=== PATIENT | male | born 1985 | race American Indian/Alaskan Native ===

== ENCOUNTER 2018-10-02 00:06 | Emergency (ER) | payer OTHER ==
[2018-10-02 00:45] VITALS: BP 159/104
--- NOTE | 2018-10-02 01:45 | XRay Report ---
PROCEDURE: XR TIBIA FIBULA 2V RT TECHNIQUE: Right tibia and fibula radiographs, AP and lateral views. HISTORY: significant L leg swelling s/p trauma COMPARISONS: None. FINDINGS: Fracture (s) and/or Dislocation(s): None. Joint space(s): Normal. Soft tissues: Normal. Bone mineralization: Normal. Foreign bodies: None. IMPRESSION: Normal Examination. This document is electronically signed by Latrell Edwards MD., October 02 2018 01:43:53 AM ET
== END 2018-10-02 03:00 | disposition left against medical advice (07) ==
LOC: ED 00:06
DX: M79.661 Pain in right lower leg (principal); Z53.21 Procedure and treatment not carried out due to patient leaving prior to being seen by health care provider

== ENCOUNTER 2019-10-09 08:09 | Emergency (ER) | payer OTHER ==
[2019-10-09 08:13] VITALS: BP 175/104
== END 2019-10-09 08:30 | disposition left against medical advice (07) ==
LOC: ED 08:09
DX: I10 Essential (primary) hypertension (principal); Z53.21 Procedure and treatment not carried out due to patient leaving prior to being seen by health care provider
CPT/HCPCS: 93005; 93010

== ENCOUNTER 2021-11-21 14:35 | Inpatient (IN) | payer SELFPAY ==
[2021-11-21] MEDS ORDERED: MORPHINE 4 MG/1 ML INJ IV ONE (15:48)
[2021-11-21] MEDS ORDERED: ONDANSETRON 4 MG/2 ML INJ IV ONE (15:48)
[2021-11-21 16:48] LABS: Alanine Aminotransferase 39 units/L (7-56); Albumin 4.6 g/dL (3.9-5); BUN/Creatinine Ratio 4; Blood Urea Nitrogen 6 mg/dL (9-20); Calcium 9.5 mg/dL (8.4-10.2); Hemolysis Index 37
[2021-11-21 16:53] LABS: Basophils % (Auto) 0.2 % (0.0-1.8); Eosinophils % (Auto) 0.1 % (0.0-4.3); Hematocrit 47.1 % (35.5-45.6); Hemoglobin 16.6 gm/dl (11.8-15.2); Lymphocytes # (Auto) 1.5 K/mm3 (1.2-5.4); Lymphocytes % (Auto) 10.2 % (13.4-35.0); Mean Corpuscular HGB Conc 35 % (32-34); Mean Corpuscular Volume 96 fl (84-94); Monocytes # (Auto) 1.2 K/mm3 (0.0-0.8); Platelet Count 310 K/mm3 (140-440); Red Blood Count 4.91 M/mm3 (3.65-5.03); Red Cell Distribution Width 13.4 % (13.2-15.2)
[2021-11-21] MEDS ORDERED: SODIUM CHLORIDE 0.9% 1000 ML 1,000 ML IV ONE (17:27)
[2021-11-21] MEDS ORDERED: HYDROmorphone 1 MG/1 ML INJ IV ONE (18:46)
--- NOTE | 2021-11-21 18:46 | Emergency Department Report ---
ED General Adult HPI - General Chief complaint: Weakness Stated complaint: VOMITING/LIGHT HEADED Time Seen by Provider: 11/21/21 15:14 Source: patient Mode of arrival: Ambulatory Limitations: No Limitations - History of Present Illness Initial comments: Patient presents with complaints of middle, upper abdominal pain, sharp, radiating, 10/10, not worsened or relieved by anything. Endorses nausea, non bloody, non bilious vomiting. Last BM was today and formed. Endorses flatulence. Denies dysuria, frequency, urgency. Severity scale (0 -10): 8 - Related Data Home Medications Medication Instructions Recorded Confirmed Last Taken Gabapentin [Neurontin] 600 mg PO TID 11/21/21 11/21/21 Unknown Ipratropium (Nf) [Atrovent HFA 2 sprays PO Q4HR 11/21/21 11/21/21 Unknown 17MCG/PUFF] Losartan [Cozaar] 25 mg PO DAILY 11/21/21 11/21/21 Unknown amLODIPine [Norvasc] 10 mg PO DAILY 11/21/21 11/21/21 Unknown hydroCHLOROthiazide [HCTZ] 25 mg PO QDAY 11/21/21 11/21/21 Unknown Allergies Allergy/AdvReac Type Severity Reaction Status Date / Time No Known Allergies Allergy Unverified 10/02/18 00:16 ED Review of Systems ROS: Stated complaint: VOMITING/LIGHT HEADED Other details as noted in HPI Comment: All other systems reviewed and negative Constitutional: denies: chills, fever ED Past Medical Hx - Past Medical History Hx Hypertension: Yes Hx Asthma: Yes - Surgical History Past Surgical History?: Yes Additional Surgical History: small bowel obstruction 02/2021 - Social History Smoking Status: Current Some Day Smoker Substance Use Type: None, Alcohol - Medications Home Medications: Home Medications Medication Instructions Recorded Confirmed Last Taken Type Gabapentin [Neurontin] 600 mg PO TID 11/21/21 11/21/21 Unknown History Ipratropium (Nf) [Atrovent HFA 2 sprays PO Q4HR 11/21/21 11/21/21 Unknown History 17MCG/PUFF] Losartan [Cozaar] 25 mg PO DAILY 11/21/21 11/21/21 Unknown History amLODIPine [Norvasc] 10 mg PO DAILY 11/21/21 11/21/21 Unknown History hydroCHLOROthiazide [HCTZ] 25 mg PO QDAY 11/21/21 11/21/21 Unknown History ED Physical Exam - General Limitations: No Limitations General appearance: alert, other (writhing in pain) - Head Head exam: Present: atraumatic, normocephalic - Eye Eye exam: Present: PERRL, EOMI - ENT ENT exam: Present: mucous membranes moist, other (airway patent) - Neck Neck exam: Present: other (supple; no JVD) - Respiratory Respiratory exam: Present: other (good air entry, nml I:E, CTAB, no use of MARIA ELENA) - Cardiovascular Cardiovascular Exam: Present: regular rate. Absent: rubs, gallop - GI/Abdominal GI/Abdominal exam: Present: other (soft; tender to palpation in epigastric rewgion; no rebound tenderness or involuntary guarding ) - Extremities Exam Extremities exam: Present: full ROM. Absent: tenderness - Back Exam Back exam: Present: full ROM. Absent: CVA tenderness (R), CVA tenderness (L) - Neurological Exam Neurological exam: Present: alert, oriented X3, CN II-XII intact. Absent: motor sensory deficit - Skin Skin exam: Present: warm, normal color ED Course Vital Signs 11/21/21 11/21/21 11/21/21 14:49 15:16 16:01 Temperature 96.2 F L Pulse Rate 144 H 104 H Respiratory 22 22 Rate Blood Pressure 83/46 Blood Pressure 94/54 [Right] O2 Sat by Pulse 100 98 100 Oximetry 11/21/21 11/21/21 11/21/21 16:02 16:58 18:00 Temperature Pulse Rate 84 104 H Respiratory 18 18 18 Rate Blood Pressure Blood Pressure 126/66 105/60 [Right] O2 Sat by Pulse 99 96 Oximetry 11/21/21 11/21/21 11/21/21 18:52 18:56 19:06 Temperature 97.9 F 98.1 F Pulse Rate 105 H 105 H Respiratory 17 17 19 Rate Blood Pressure Blood Pressure 126/68 126/68 [Right] O2 Sat by Pulse 100 100 Oximetry 11/21/21 11/21/21 11/21/21 20:48 21:01 21:15 Temperature 99.0 F Pulse Rate 108 H 102 H Respiratory 14 21 Rate Blood Pressure 112/65 Blood Pressure [Right] O2 Sat by Pulse 100 91 Oximetry ED Medical Decision Making - Lab Data Result diagrams: 11/21/21 16:10 11/21/21 16:10 Laboratory Results - last 72 hr 11/21/21 11/21/21 11/21/21 16:10 16:10 16:10 WBC 14.8 H RBC 4.91 Hgb 16.6 H Hct 47.1 H MCV 96 H MCH 34 H MCHC 35 H RDW 13.4 Plt Count 310 Lymph % (Auto) 10.2 L [place] % (Auto) 8.0 H Eos % (Auto) 0.1 Baso % (Auto) 0.2 Lymph # (Auto) 1.5 [place] # (Auto) 1.2 H Eos # (Auto) 0.0 Baso # (Auto) 0.0 Seg Neutrophils % 81.5 H Seg Neutrophils # 12.1 H Sodium 126 L Potassium 3.1 L Chloride 83.6 L Carbon Dioxide 19 L Anion Gap 27 BUN 6 L Creatinine 1.5 H Estimated GFR > 60 BUN/Creatinine Ratio 4 Glucose 144 H Lactic Acid 5.80 H* Calcium 9.5 Total Bilirubin 1.30 H AST 77 H ALT 39 Alkaline Phosphatase 159 H Total Protein 7.7 Albumin 4.6 Albumin/Globulin Ratio 1.5 Lipase 703 H 11/21/21 17:36 WBC RBC Hgb Hct MCV MCH MCHC RDW Plt Count Lymph % (Auto) [place] % (Auto) Eos % (Auto) Baso % (Auto) Lymph # (Auto) [place] # (Auto) Eos # (Auto) Baso # (Auto) Seg Neutrophils % Seg Neutrophils # Sodium Potassium Chloride Carbon Dioxide Anion Gap BUN Creatinine Estimated GFR BUN/Creatinine Ratio Glucose Lactic Acid 0.90 Calcium Total Bilirubin AST ALT Alkaline Phosphatase Total Protein Albumin Albumin/Globulin Ratio Lipase CT abd/pelvis: acute pancreatitis - Medical Decision Making Received morphine 4 mg IV x 1, zofran 4 mg IV x 1, dilaudid 1 mg IV x 1, NS @ 125 ml/hr Dr. Hobbs (hospitalist) called @ 18:00 for admission. He requested we wait till 21:00 to admit to the next physician as he is backed up at this time. Critical care attestation.: If time is entered above; I have spent that time in minutes in the direct care of this critically ill patient, excluding procedure time. ED Disposition Clinical Impression: Acute pancreatitis Disposition: 09 ADMITTED INPATIENT Is pt being admited?: Yes Does the pt Need Aspirin: No Condition: Stable Time of Disposition: 18:00 (Patient admitted to Dr. Hameed @ 9:30 pm. Sign out was given by me to the admitting physician. )
--- NOTE | 2021-11-21 18:54 | Cat Scan Report ---
. CT ABDOMEN AND PELVIS WITH CONTRAST HISTORY: abdominal pain. COMPARISON: None. TECHNIQUE: CT images of the abdomen and pelvis were obtained following administration of intravenous contrast. All CT scans at this location are performed using CT dose reduction for ALARA by means of automated exposure control. CONTRAST: 100 ml of intravenous contrast administered. FINDINGS: Lungs/bones: Lung bases are clear. No acute osseous abnormality identified. Abdomen/pelvis: There is considerable inflammatory change about the pancreas with no underlying mass or obstructive stone disease. Secondary inflammatory changes seen involving the second and third seg ments of the duodenum. [place] regional lymph nodes are present as well. There is no collection to sug gest pseudocyst formation. There is mild hepatic steatosis. The gallbladder, spleen, adrenals, and left kidney appear unremarkab le. Simple cyst in the midpole the right kidney. Urinary bladder is unremarkable. Prostate is enlarged. No pelvic free fluid or acute colonic abnormal ity identified. Old postoperative change seen involving the colon near the distal transverse segment/ hepatic flexure. IMPRESSION: 1. Acute pancreatitis with no obvious mass or stone identified. Signer Name: Rafael Schaefer MD Signed: 11/21/2021 6:49 PM Workstation Name: [id number]
[2021-11-21] MEDS ORDERED: MORPHINE 2 MG/1 ML INJ ONE (22:41)
[2021-11-21] MEDS: MORPHINE 4 MG/1 ML INJ IV PRN (22:45)
[2021-11-21] MEDS ORDERED: ALBUTEROL 2.5 MG/3 ML NEBU IH PRN (23:00)
[2021-11-21] MEDS ORDERED: D5W/0.45% NACL 1,000 ML IV SCH (23:00)
[2021-11-21] MEDS ORDERED: ACETAMINOPHEN 325 MG TAB PO PRN (23:00)
[2021-11-21] MEDS ORDERED: MORPHINE 2 MG/1 ML INJ IV PRN (23:00)
--- NOTE | 2021-11-21 23:08 | History and Physical Report ---
History of Present Illness Date of examination: 11/21/21 Date of admission: 11/21/21 Chief complaint: Abdominal pain History of present illness: 36 years old male with past medical history of alcohol abuse was brought to the emergency room because of middle, upper abdominal pain, sharp, radiating, 10/10, not worsened or relieved by anything. Endorses nausea, non bloody, non bilious vomiting. Last BM was today and formed. Endorses flatulence. Denies dysuria, frequency, urgency. In the emergency room initial CT scan of the abdomen and pelvis showed acute pancreatitis. Also patient lactic acid was initially 5.80 later 0.90 also lipase is 703. So going to admit the patient I put the patient on nothing by mouth IV fluid IV antibiotic Past History Past Medical History: hypertension, other (Asthma) Past Surgical History: Other (small bowel obstruction 02/2021) Social history: smoking, alcohol abuse Family history: no significant family history Medications and Allergies Allergies Allergy/AdvReac Type Severity Reaction Status Date / Time No Known Allergies Allergy Verified 11/21/21 22:45 Home Medications Medication Instructions Recorded Confirmed Last Taken Type Gabapentin [Neurontin] 600 mg PO TID 11/21/21 11/21/21 Unknown History Ipratropium (Nf) [Atrovent HFA 2 sprays PO Q4HR 11/21/21 11/21/21 Unknown History 17MCG/PUFF] Losartan [Cozaar] 25 mg PO DAILY 11/21/21 11/21/21 Unknown History amLODIPine [Norvasc] 10 mg PO DAILY 11/21/21 11/21/21 Unknown History hydroCHLOROthiazide [HCTZ] 25 mg PO QDAY 11/21/21 11/21/21 Unknown History Active Meds: Active Medications Acetaminophen (Acetaminophen 325 Mg Tab) 650 mg PO Q4H PRN PRN Reason: Pain MILD(1-3)/Fever >100.5/ESPARZA Albuterol (Albuterol 2.5 Mg/3 Ml Nebu) 2.5 mg IH Q3HRT PRN PRN Reason: Shortness Of Breath Albuterol/Ipratropium (Ipratropium/Albuterol Sulfate 3 Ml Ampul.Neb) 1 ampul IH Q6HRT ROSMERY Dextrose/Sodium Chloride (D5/0.45ns) 1,000 mls @ 100 mls/hr IV DIRECT ROSMERY Morphine Sulfate (Morphine 4 Mg/1 Ml Inj) 2 mg IV Q4HR PRN PRN Reason: Pain , Severe (7-10) Last Admin: 11/21/21 22:45 Dose: 2 mg Ondansetron HCl (Ondansetron 4 Mg/2 Ml Inj) 4 mg IV Q8H PRN PRN Reason: Nausea And Vomiting Sodium Chloride (Sodium Chloride 0.9% 10 Ml Flush Syringe) 10 ml IV BID ROSMERY Sodium Chloride (Sodium Chloride 0.9% 10 Ml Flush Syringe) 10 ml IV PRN PRN PRN Reason: LINE FLUSH Review of Systems All systems: negative Constitutional: weakness Gastrointestinal: abdominal pain, nausea, vomiting Exam - Constitutional Vitals: Temp Pulse Resp BP Pulse Ox 99.0 F 102 H 21 112/65 91 11/21/21 21:15 11/21/21 21:01 11/21/21 21:01 11/21/21 21:01 11/21/21 21:01 General appearance: Present: no acute distress, well-nourished - EENT Eyes: Present: PERRL ENT: hearing intact, clear oral mucosa - Neck Neck: Present: supple, normal ROM - Respiratory Respiratory effort: normal Respiratory: bilateral: diminished - Cardiovascular Heart Sounds: Present: S1 & S2. Absent: rub, click - Extremities Extremities: pulses symmetrical, No edema Peripheral Pulses: within normal limits - Abdominal General gastrointestinal: Present: soft, non-tender, non-distended, normal bowel sounds Male genitourinary: Present: normal - Integumentary Integumentary: Present: clear, warm, dry - Musculoskeletal Musculoskeletal: gait normal, strength equal bilaterally - Psychiatric Psychiatric: appropriate mood/affect, intact judgment & insight - Neurologic Neurologic: CNII-XII intact, moves all extremities Results - Labs CBC & Chem 7: 11/21/21 16:10 11/21/21 16:10 Labs: Laboratory Last Values WBC 14.8 K/mm3 (4.5-11.0) H 11/21/21 16:10 RBC 4.91 M/mm3 (3.65-5.03) 11/21/21 16:10 Hgb 16.6 gm/dl (11.8-15.2) H 11/21/21 16:10 Hct 47.1 % (35.5-45.6) H 11/21/21 16:10 MCV 96 fl (84-94) H 11/21/21 16:10 MCH 34 pg (28-32) H 11/21/21 16:10 MCHC 35 % (32-34) H 11/21/21 16:10 RDW 13.4 % (13.2-15.2) 11/21/21 16:10 Plt Count 310 K/mm3 (140-440) 11/21/21 16:10 Lymph % (Auto) 10.2 % (13.4-35.0) L 11/21/21 16:10 [place] % (Auto) 8.0 % (0.0-7.3) H 11/21/21 16:10 Eos % (Auto) 0.1 % (0.0-4.3) 11/21/21 16:10 Baso % (Auto) 0.2 % (0.0-1.8) 11/21/21 16:10 Lymph # (Auto) 1.5 K/mm3 (1.2-5.4) 11/21/21 16:10 [place] # (Auto) 1.2 K/mm3 (0.0-0.8) H 11/21/21 16:10 Eos # (Auto) 0.0 K/mm3 (0.0-0.4) 11/21/21 16:10 Baso # (Auto) 0.0 K/mm3 (0.0-0.1) 11/21/21 16:10 Seg Neutrophils % 81.5 % (40.0-70.0) H 11/21/21 16:10 Seg Neutrophils # 12.1 K/mm3 (1.8-7.7) H 11/21/21 16:10 Sodium 126 mmol/L (137-145) L 11/21/21 16:10 Potassium 3.1 mmol/L (3.6-5.0) L 11/21/21 16:10 Chloride 83.6 mmol/L (98-107) L 11/21/21 16:10 Carbon Dioxide 19 mmol/L (22-30) L 11/21/21 16:10 Anion Gap 27 mmol/L 11/21/21 16:10 BUN 6 mg/dL (9-20) L 11/21/21 16:10 Creatinine 1.5 mg/dL (0.8-1.3) H 11/21/21 16:10 Estimated GFR > 60 ml/min 11/21/21 16:10 BUN/Creatinine Ratio 4 % 11/21/21 16:10 Glucose 144 mg/dL (75-100) H 11/21/21 16:10 Lactic Acid 0.90 mmol/L (0.7-2.0) 11/21/21 17:36 Calcium 9.5 mg/dL (8.4-10.2) 11/21/21 16:10 Total Bilirubin 1.30 mg/dL (0.1-1.2) H 11/21/21 16:10 AST 77 units/L (5-40) H 11/21/21 16:10 ALT 39 units/L (7-56) 11/21/21 16:10 Alkaline Phosphatase 159 units/L (35-129) H 11/21/21 16:10 Total Protein 7.7 g/dL (6.3-8.2) 11/21/21 16:10 Albumin 4.6 g/dL (3.9-5) 11/21/21 16:10 Albumin/Globulin Ratio 1.5 % 11/21/21 16:10 Lipase 703 units/L (13-60) H 11/21/21 16:10 - Imaging and Cardiology CT scan - abdomen: report reviewed Assessment and Plan VTE prophylaxis?: Chemical Plan of care discussed with patient/family: Yes - Patient Problems (1) Acute pancreatitis Current Visit: Yes Status: Acute Plan to address problem: Admit the patient to the medical floor. NPO. D5 half-normal saline at the rate of 100 cc/h. Pepcid 20 mg IV every 12 hours. Levaquin 750 mg IV daily .we will recheck the lipase in the morning. (2) Hypertension Current Visit: Yes Status: Acute Plan to address problem: Hydralazine 10 mg IV every 6 hours as needed. Amlodipine 10 mg p.o. daily. Losartan 25 mg p.o. daily. Hydrochlorothiazide 25 mg p.o. daily (3) Asthma Current Visit: Yes Status: Acute Plan to address problem: Oxygen per nasal cannula 3 L/min. DuoNeb by nebulizer every 4 hours. Albuterol via nebulizer every 4 hours as needed (4) Alcohol abuse Current Visit: Yes Status: Acute Plan to address problem: Counseled the patient regarding quit drinking. We will put the patient on banana bag, thiamine and folic acid (5) Tobacco abuse Current Visit: Yes Status: Acute Plan to address problem: Patient counseled our quit smoking. We put the patient on nicotine patch (6) DVT prophylaxis Current Visit: Yes Status: Acute
[2021-11-21] MEDS ORDERED: NICOTINE 14 MG/24 HR PATCH TD ONE (23:09)
[2021-11-21] MEDS ORDERED: THIAMINE 100 MG, FOLIC ACID 1 MG, MULTIPLE VITAMIN INJ, ADULT 10 ML in SODIUM CHLORIDE ... IV ONE (23:09)
[2021-11-21] MEDS ORDERED: FAMOTIDINE 20 MG/2 ML INJ IV ONE (23:18)
[2021-11-21 23:53] LABS: Bilirubin,Urine NEG (Negative); Blood,Urine NEG (Negative); Color,Urine Yellow (Yellow); Protein,Urine <15 mg/dL mg/dL (Negative); Urobilinogen,Urine < 2.0 mg/dL (<2.0)
[2021-11-22 00:14] LABS: Amphetamine Screen,Urine PRESUMPTIVE NEGATIVE; Benzodiazepines Screen,Urine PRESUMPTIVE NEGATIVE; Cannabinoid Screen,Urine PRESUMPTIVE NEGATIVE; Cocaine Screen,Urine PRESUMPTIVE NEGATIVE; Methadone Screen,Urine PRESUMPTIVE NEGATIVE; Opiate Screen,Urine PRESUMPTIVE NEGATIVE
[2021-11-22] MEDS: HYDROmorphone 1 MG/1 ML INJ IV PRN ×5 (01:41→21:14)
[2021-11-22] MEDS ORDERED: NON-FORMULARY EACH (Ipratropium (Nf) 1 PUFF Inha) PO SCH (02:00)
[2021-11-22] MEDS: ONDANSETRON 4 MG/2 ML INJ IV PRN ×2 (03:16→09:05)
[2021-11-22 06:29] LABS: Basophils % (Auto) 0.1 % (0.0-1.8); Hematocrit 46.8 % (35.5-45.6); Hemoglobin 15.7 gm/dl (11.8-15.2); Lymphocytes # (Auto) 1.3 K/mm3 (1.2-5.4); Lymphocytes % (Auto) 8.4 % (13.4-35.0); Mean Corpuscular HGB Conc 34 % (32-34); Mean Corpuscular Volume 100 fl (84-94); Monocytes # (Auto) 1.1 K/mm3 (0.0-0.8); Monocytes % (Auto) 7.3 % (0.0-7.3); Platelet Count 256 K/mm3 (140-440); Red Blood Count 4.69 M/mm3 (3.65-5.03); Red Cell Distribution Width 13.5 % (13.2-15.2)
[2021-11-22 06:47] LABS: Alanine Aminotransferase 30 units/L (7-56); BUN/Creatinine Ratio 6; Blood Urea Nitrogen 5 mg/dL (9-20); Calcium 8.2 mg/dL (8.4-10.2); Hemolysis Index 51
[2021-11-22] MEDS: IPRATROPIUM/ALBUTEROL SULFATE 3 ML AMPUL.NEB IH SCH ×4 (07:40→20:14)
[2021-11-22] MEDS: MORPHINE 4 MG/1 ML INJ IV PRN (07:53)
[2021-11-22] MEDS ORDERED: MORPHINE 2 MG/1 ML INJ IV PRN (08:00)
--- NOTE | 2021-11-22 08:20 | Progress Note ---
Assessment and Plan Assessment and plan: #SIRS -tachycardic with leukocytosis -likely secondary to pancreatitis #Acute pancreatitis -patient eager to eat, started CLD will advance as tolerate -continue IVFs, pepcid -PRN pain medications -counseled patient about importance of ETOH cesssation #Hyponatremia -hypovolemic -likely secondary to free fluid administration vs alcohol use -given 1mg salt tab and hypertonic saline 500cc -D5 1/2NS discontinued, will proceed with NS for fluid rescucitation -repeat sodium q8h #Hypertension -continue home medications: amlodipine, losartan and HCTZ -PRN Hydralazine -goal SBP <160 #Asthma-controlled -PRN duonebs #Hypokalemia -likely secondary to ETOH abuse -will continue to replete and monitor #Alcohol dependence -patient counseled about cessation, appeared to be contemplative -CIWA protocol ordered, high risk for DT give episode in the past #Tobacco abuse #tobacco cessation counseling -nicotine patch ordered -Smoking cessation counseling, supportive care, behavior change counseling, +15 minutes. #Advanced care planning -Disease education conducted, care plan discussed, diagnoses discussed, prognosis discussed, and patient acknowledges understanding with care plan -Time: +30 min History Interval history: No acute events. Per patient and at bedside he has history of DT in the past. Currently his pain is not controlled. Advised that he had as needed pain medications. Eager to eat. Discussed current care plan and will start clear liquid diet. Hospitalist Physical - Physical exam Narrative exam: GENERAL: Thin male. In no acute distress. HEENT: Normocephalic. Atraumatic. NECK: Supple. CHEST/LUNGS: CTAB on room air HEART/CARDIOVASCULAR: RRR. No murmur, rubs or gallops appreciated. ABDOMEN: +BS. NT/ND. SKIN: No rashes noted. NEURO: No focal motor deficit. Follows all commands. MUSCULOSKELETAL: No joint effusion EXTREMITIES: No cyanosis, clubbing or edema. PSYCH: Cooperative. - Constitutional Vitals: Temp Pulse Resp BP Pulse Ox 97.9 F 96 H 17 126/86 100 11/22/21 05:41 11/22/21 05:31 11/22/21 07:16 11/22/21 06:45 11/22/21 07:16 General appearance: Present: no acute distress, well-nourished Results - Labs CBC & Chem 7: 11/22/21 06:06 11/22/21 13:24 Labs: Laboratory Last Values WBC 15.2 K/mm3 (4.5-11.0) H 11/22/21 06:06 RBC 4.69 M/mm3 (3.65-5.03) 11/22/21 06:06 Hgb 15.7 gm/dl (11.8-15.2) H 11/22/21 06:06 Hct 46.8 % (35.5-45.6) H 11/22/21 06:06 MCV 100 fl (84-94) H 11/22/21 06:06 MCH 34 pg (28-32) H 11/22/21 06:06 MCHC 34 % (32-34) 11/22/21 06:06 RDW 13.5 % (13.2-15.2) 11/22/21 06:06 Plt Count 256 K/mm3 (140-440) 11/22/21 06:06 Lymph % (Auto) 8.4 % (13.4-35.0) L 11/22/21 06:06 [place] % (Auto) 7.3 % (0.0-7.3) 11/22/21 06:06 Eos % (Auto) 0.0 % (0.0-4.3) 11/22/21 06:06 Baso % (Auto) 0.1 % (0.0-1.8) 11/22/21 06:06 Lymph # (Auto) 1.3 K/mm3 (1.2-5.4) 11/22/21 06:06 [place] # (Auto) 1.1 K/mm3 (0.0-0.8) H 11/22/21 06:06 Eos # (Auto) 0.0 K/mm3 (0.0-0.4) 11/22/21 06:06 Baso # (Auto) 0.0 K/mm3 (0.0-0.1) 11/22/21 06:06 Seg Neutrophils % 84.2 % (40.0-70.0) H 11/22/21 06:06 Seg Neutrophils # 12.8 K/mm3 (1.8-7.7) H 11/22/21 06:06 Sodium 120 mmol/L (137-145) L 11/22/21 06:06 Potassium 3.4 mmol/L (3.6-5.0) L 11/22/21 06:06 Chloride 83.8 mmol/L (98-107) L 11/22/21 06:06 Carbon Dioxide 21 mmol/L (22-30) L 11/22/21 06:06 Anion Gap 19 mmol/L 11/22/21 06:06 BUN 5 mg/dL (9-20) L 11/22/21 06:06 Creatinine 0.9 mg/dL (0.8-1.3) 11/22/21 06:06 Estimated GFR > 60 ml/min 11/22/21 06:06 BUN/Creatinine Ratio 6 % 11/22/21 06:06 Glucose 177 mg/dL (75-100) H 11/22/21 06:06 Lactic Acid 0.90 mmol/L (0.7-2.0) 11/21/21 17:36 Calcium 8.2 mg/dL (8.4-10.2) L 11/22/21 06:06 Total Bilirubin 0.80 mg/dL (0.1-1.2) 11/22/21 06:06 AST 45 units/L (5-40) H 11/22/21 06:06 ALT 30 units/L (7-56) 11/22/21 06:06 Alkaline Phosphatase 132 units/L (35-129) H 11/22/21 06:06 Total Protein 6.3 g/dL (6.3-8.2) 11/22/21 06:06 Albumin 4.0 g/dL (3.9-5) 11/22/21 06:06 Albumin/Globulin Ratio 1.7 % 11/22/21 06:06 Lipase 703 units/L (13-60) H 11/21/21 16:10 Urine Color Yellow (Yellow) 11/21/21 Unknown Urine Turbidity Clear (Clear) 11/21/21 Unknown Urine pH 8.0 (5.0-7.0) H 11/21/21 Unknown Ur Specific [place] 1.032 (1.003-1.030) H 11/21/21 Unknown Urine Protein <15 mg/dl mg/dL (Negative) 11/21/21 Unknown Urine Glucose (UA) Neg mg/dL (Negative) 11/21/21 Unknown Urine Ketones Neg mg/dL (Negative) 11/21/21 Unknown Urine Blood Neg (Negative) 11/21/21 Unknown Urine Nitrite Neg (Negative) 11/21/21 Unknown Urine Bilirubin Neg (Negative) 11/21/21 Unknown Urine Urobilinogen < 2.0 mg/dL (<2.0) 11/21/21 Unknown Ur Leukocyte Esterase Neg (Negative) 11/21/21 Unknown Urine WBC (Auto) 1.0 /HPF (0.0-6.0) 11/21/21 Unknown Urine RBC (Auto) 1.0 /HPF (0.0-6.0) 11/21/21 Unknown Urine Opiates Screen Presumptive negative 11/21/21 Unknown Urine Methadone Screen Presumptive negative 11/21/21 Unknown Ur Barbiturates Screen Presumptive negative 11/21/21 Unknown Ur Phencyclidine Scrn Presumptive negative 11/21/21 Unknown Ur Amphetamines Screen Presumptive negative 11/21/21 Unknown U Benzodiazepines Scrn Presumptive negative 11/21/21 Unknown Urine Cocaine Screen Presumptive negative 11/21/21 Unknown U Marijuana (THC) Screen Presumptive negative 11/21/21 Unknown Drugs of Abuse Note Disclamer 11/21/21 Unknown Active Medications - Current Medications Current Medications: Generic Name Dose Route Start Last Admin Trade Name Freq PRN Reason Stop Dose Admin Acetaminophen 650 mg 11/21/21 23:00 Acetaminophen 325 Mg Tab PO Q4H PRN Pain MILD(1-3)/Fever >100.5/ESPARZA Albuterol 2.5 mg 11/21/21 23:00 Albuterol 2.5 Mg/3 Ml Nebu IH Q3HRT PRN Shortness Of Breath Albuterol/Ipratropium 1 ampul 11/22/21 02:00 Ipratropium/Albuterol Sulfate 3 Ml Ampul.Neb IH Q6HRT ROSMERY Amlodipine Besylate 10 mg 11/22/21 10:00 Amlodipine 10 Mg Tab PO DAILY ROSMERY Famotidine 20 mg 11/22/21 10:00 Famotidine 20 Mg/2 Ml Inj IV BID ROSMERY Heparin Sodium (Porcine) 5,000 unit 11/22/21 10:00 Heparin 5,000 Unit/1 Ml Vial SUB-Q Q12HR ROSMERY Hydrochlorothiazide 25 mg 11/22/21 10:00 Hydrochlorothiazide 25 Mg Tab PO QDAY ROSMERY Hydromorphone HCl 0.5 mg 11/21/21 23:00 11/22/21 04:43 Hydromorphone 1 Mg/1 Ml Inj IV 0.5 mg Q3H PRN Administration Pain , Severe (7-10) Sodium Chloride 500 mls @ 500 mls/hr 11/22/21 08:16 Nacl 3% IV 11/22/21 09:15 DIRECT ONE Losartan Potassium 25 mg 11/22/21 10:00 Losartan 25 Mg Tab PO DAILY [facility] Morphine Sulfate 2 mg 11/21/21 22:39 11/22/21 07:53 Morphine 4 Mg/1 Ml Inj IV 2 mg Q4HR PRN Administration Pain , Severe (7-10) Morphine Sulfate 1 mg 11/22/21 08:00 Morphine 2 Mg/1 Ml Inj IV Q4H PRN Pain, Moderate (4-6) Ondansetron HCl 4 mg 11/21/21 23:00 11/22/21 03:16 Ondansetron 4 Mg/2 Ml Inj IV 4 mg Q8H PRN Administration Nausea And Vomiting Sodium Chloride 10 ml 11/22/21 10:00 Sodium Chloride 0.9% 10 Ml Flush Syringe IV BID ROSMERY Sodium Chloride 10 ml 11/21/21 23:00 Sodium Chloride 0.9% 10 Ml Flush Syringe IV PRN PRN LINE FLUSH
[2021-11-22] MEDS ORDERED: SODIUM CHLORIDE 1 GM TAB PO NR (09:00)
[2021-11-22] MEDS ORDERED: SODIUM CHLORIDE 3% 500 ML IV ONE (09:00)
[2021-11-22] MEDS: SODIUM CHLORIDE 0.9% 1000 ML 1,000 ML IV SCH (09:10)
[2021-11-22] MEDS: amLODIPine 10 MG TAB PO SCH (09:22)
[2021-11-22] MEDS: LOSARTAN 25 MG TAB PO SCH (09:23)
[2021-11-22] MEDS: hydroCHLOROthiazide 25 MG TAB PO SCH (09:24)
[2021-11-22] MEDS ORDERED: LORazepam 2 MG/ML VIAL IV PRN ×2 (09:46)
[2021-11-22] MEDS ORDERED: FAMOTIDINE 20 MG/2 ML INJ IV SCH (10:00)
[2021-11-22] MEDS: HEPARIN 5,000 UNIT/1 ML VIAL SUB-Q SCH ×2 (11:03→21:13)
[2021-11-22] MEDS: NICOTINE 14 MG/24 HR PATCH TD SCH (16:00)
[2021-11-22] MEDS: LORazepam 2 MG/ML VIAL IV PRN (16:35)
[2021-11-22] MEDS: FAMOTIDINE 20 MG TAB PO SCH (21:13)
[2021-11-23] MEDS: MORPHINE 2 MG/1 ML INJ IV PRN ×4 (00:08→22:08)
[2021-11-23] MEDS: IPRATROPIUM/ALBUTEROL SULFATE 3 ML AMPUL.NEB IH SCH ×4 (03:21→20:29)
[2021-11-23] MEDS ORDERED: KETOROLAC 30 MG/1 ML INJ IV SCH (05:30)
[2021-11-23 06:02] LABS: Hemoglobin 13.8 gm/dl (11.8-15.2); Mean Corpuscular HGB Conc 34 % (32-34); Mean Corpuscular Volume 99 fl (84-94); Platelet Count 225 K/mm3 (140-440); Red Blood Count 4.13 M/mm3 (3.65-5.03); Red Cell Distribution Width 13.8 % (13.2-15.2)
[2021-11-23 06:21] LABS: Blood Urea Nitrogen 4 mg/dL (9-20); Calcium 8.2 mg/dL (8.4-10.2); Hemolysis Index 6
[2021-11-23 06:27] LABS: BUN/Creatinine Ratio 6
[2021-11-23] MEDS: LOSARTAN 25 MG TAB PO SCH (09:54)
[2021-11-23] MEDS: amLODIPine 10 MG TAB PO SCH (09:54)
[2021-11-23] MEDS: HEPARIN 5,000 UNIT/1 ML VIAL SUB-Q SCH ×2 (09:58→21:47)
[2021-11-23] MEDS: NICOTINE 14 MG/24 HR PATCH TD SCH (09:59)
[2021-11-23] MEDS: FAMOTIDINE 20 MG TAB PO SCH ×2 (09:59→21:49)
[2021-11-23] MEDS: hydroCHLOROthiazide 25 MG TAB PO SCH (09:59)
--- NOTE | 2021-11-23 10:26 | Progress Note ---
Assessment and Plan Assessment and plan: #SIRS -tachycardic with leukocytosis -likely secondary to pancreatitis #Acute pancreatitis -patient eager to eat, Cont. to advance diet as tolerated -continue IVFs, pepcid -PRN pain medications -counseled patient about importance of ETOH cesssation -F/U Lipase today #Hyponatremia -hypovolemic -likely secondary to free fluid administration vs alcohol use -given 1mg salt tab and hypertonic saline 500cc -D5 1/2NS discontinued, will proceed with NS for fluid rescucitation -repeat sodium q8h #Hypertension -continue home medications: amlodipine, losartan and HCTZ -PRN Hydralazine -goal SBP <160 #Asthma-controlled -PRN duonebs #Hypokalemia -likely secondary to ETOH abuse -will continue to replete and monitor #Alcohol dependence -patient counseled about cessation, appeared to be contemplative -Cont. CIWA protocol, high risk for DT give episode in the past #Tobacco abuse #tobacco cessation counseling -nicotine patch ordered -Smoking cessation counseling, supportive care, behavior change counseling, +15 minutes. History Interval history: No new issues overnight Hospitalist Physical - Constitutional Vitals: Temp Pulse Resp BP Pulse Ox 98.6 F 130 H 20 111/78 98 11/23/21 09:49 11/23/21 09:49 11/23/21 09:49 11/23/21 09:54 11/23/21 09:49 General appearance: Present: no acute distress, well-nourished - EENT Eyes: Present: PERRL, EOM intact ENT: hearing intact, clear oral mucosa, dentition normal - Neck Neck: Present: supple, normal ROM - Respiratory Respiratory effort: normal Respiratory: bilateral: CTA - Cardiovascular Rhythm: regular Heart Sounds: Present: S1 & S2. Absent: gallop, rub - Extremities Extremities: no ischemia, No edema, Full ROM - Abdominal General gastrointestinal: soft, non-tender, non-distended, normal bowel sounds - Integumentary Integumentary: Present: clear, warm, dry - Neurologic Neurologic: CNII-XII intact, moves all extremities Results - Labs CBC & Chem 7: 11/23/21 05:16 11/23/21 05:16 Labs: Laboratory Last Values WBC 16.9 K/mm3 (4.5-11.0) H 11/23/21 05:16 RBC 4.13 M/mm3 (3.65-5.03) 11/23/21 05:16 Hgb 13.8 gm/dl (11.8-15.2) 11/23/21 05:16 Hct 41.0 % (35.5-45.6) 11/23/21 05:16 MCV 99 fl (84-94) H 11/23/21 05:16 MCH 33 pg (28-32) H 11/23/21 05:16 MCHC 34 % (32-34) 11/23/21 05:16 RDW 13.8 % (13.2-15.2) 11/23/21 05:16 Plt Count 225 K/mm3 (140-440) 11/23/21 05:16 Lymph % (Auto) 8.4 % (13.4-35.0) L 11/22/21 06:06 Tompkins % (Auto) 7.3 % (0.0-7.3) 11/22/21 06:06 Eos % (Auto) 0.0 % (0.0-4.3) 11/22/21 06:06 Baso % (Auto) 0.1 % (0.0-1.8) 11/22/21 06:06 Lymph # (Auto) 1.3 K/mm3 (1.2-5.4) 11/22/21 06:06 Tompkins # (Auto) 1.1 K/mm3 (0.0-0.8) H 11/22/21 06:06 Eos # (Auto) 0.0 K/mm3 (0.0-0.4) 11/22/21 06:06 Baso # (Auto) 0.0 K/mm3 (0.0-0.1) 11/22/21 06:06 Seg Neutrophils % 84.2 % (40.0-70.0) H 11/22/21 06:06 Seg Neutrophils # 12.8 K/mm3 (1.8-7.7) H 11/22/21 06:06 Sodium 131 mmol/L (137-145) L 11/23/21 05:16 Potassium 3.1 mmol/L (3.6-5.0) L 11/23/21 05:16 Chloride 94.6 mmol/L (98-107) L 11/23/21 05:16 Carbon Dioxide 24 mmol/L (22-30) 11/23/21 05:16 Anion Gap 16 mmol/L 11/23/21 05:16 BUN 4 mg/dL (9-20) L 11/23/21 05:16 Creatinine 0.7 mg/dL (0.8-1.3) L 11/23/21 05:16 Estimated GFR > 60 ml/min 11/23/21 05:16 BUN/Creatinine Ratio 6 % 11/23/21 05:16 Glucose 106 mg/dL (75-100) H 11/23/21 05:16 Lactic Acid 0.90 mmol/L (0.7-2.0) 11/21/21 17:36 Calcium 8.2 mg/dL (8.4-10.2) L 11/23/21 05:16 Phosphorus 2.30 mg/dL (2.5-4.5) L 11/23/21 05:16 Magnesium 1.40 mg/dL (1.7-2.3) L 11/23/21 05:16 Total Bilirubin 0.80 mg/dL (0.1-1.2) 11/22/21 06:06 AST 45 units/L (5-40) H 11/22/21 06:06 ALT 30 units/L (7-56) 11/22/21 06:06 Alkaline Phosphatase 132 units/L (35-129) H 11/22/21 06:06 Total Protein 6.3 g/dL (6.3-8.2) 11/22/21 06:06 Albumin 4.0 g/dL (3.9-5) 11/22/21 06:06 Albumin/Globulin Ratio 1.7 % 11/22/21 06:06 Lipase 703 units/L (13-60) H 11/21/21 16:10 Urine Color Yellow (Yellow) 11/21/21 Unknown Urine Turbidity Clear (Clear) 11/21/21 Unknown Urine pH 8.0 (5.0-7.0) H 11/21/21 Unknown Ur Specific Erick 1.032 (1.003-1.030) H 11/21/21 Unknown Urine Protein <15 mg/dl mg/dL (Negative) 11/21/21 Unknown Urine Glucose (UA) Neg mg/dL (Negative) 11/21/21 Unknown Urine Ketones Neg mg/dL (Negative) 11/21/21 Unknown Urine Blood Neg (Negative) 11/21/21 Unknown Urine Nitrite Neg (Negative) 11/21/21 Unknown Urine Bilirubin Neg (Negative) 11/21/21 Unknown Urine Urobilinogen < 2.0 mg/dL (<2.0) 11/21/21 Unknown Ur Leukocyte Esterase Neg (Negative) 11/21/21 Unknown Urine WBC (Auto) 1.0 /HPF (0.0-6.0) 11/21/21 Unknown Urine RBC (Auto) 1.0 /HPF (0.0-6.0) 11/21/21 Unknown Urine Opiates Screen Presumptive negative 11/21/21 Unknown Urine Methadone Screen Presumptive negative 11/21/21 Unknown Ur Barbiturates Screen Presumptive negative 11/21/21 Unknown Ur Phencyclidine Scrn Presumptive negative 11/21/21 Unknown Ur Amphetamines Screen Presumptive negative 11/21/21 Unknown U Benzodiazepines Scrn Presumptive negative 11/21/21 Unknown Urine Cocaine Screen Presumptive negative 11/21/21 Unknown U Marijuana (THC) Screen Presumptive negative 11/21/21 Unknown Drugs of Abuse Note Disclamer 11/21/21 Unknown Active Medications - Current Medications Current Medications: Generic Name Dose Route Start Last Admin Trade Name Freq PRN Reason Stop Dose Admin Acetaminophen 650 mg 11/21/21 23:00 Acetaminophen 325 Mg Tab PO Q4H PRN Pain MILD(1-3)/Fever >100.5/ESPARZA Albuterol 2.5 mg 11/21/21 23:00 Albuterol 2.5 Mg/3 Ml Nebu IH Q3HRT PRN Shortness Of Breath Albuterol/Ipratropium 1 ampul 11/22/21 02:00 11/23/21 03:21 Ipratropium/Albuterol Sulfate 3 Ml Ampul.Neb IH Not Given Q6HRT ROSMERY Amlodipine Besylate 10 mg 11/22/21 10:00 11/23/21 09:54 Amlodipine 10 Mg Tab PO Not Given DAILY ROSMERY Famotidine 20 mg 11/22/21 22:00 11/23/21 09:59 Famotidine 20 Mg Tab PO 20 mg BID ROSMERY Administration Heparin Sodium (Porcine) 5,000 unit 11/22/21 10:00 11/23/21 09:58 Heparin 5,000 Unit/1 Ml Vial SUB-Q 5,000 unit Q12HR ROSMERY Administration Hydrochlorothiazide 25 mg 11/22/21 10:00 11/23/21 09:59 Hydrochlorothiazide 25 Mg Tab PO 25 mg QDAY ROSMERY Administration Hydromorphone HCl 1 mg 11/22/21 09:47 11/22/21 21:14 Hydromorphone 1 Mg/1 Ml Inj IV 1 mg Q3H PRN Administration Pain , Severe (7-10) Sodium Chloride 1,000 mls @ 100 mls/hr 11/22/21 10:00 11/22/21 09:10 Nacl 0.9% 1000 Ml IV 100 mls/hr DIRECT ROSMERY Administration Lorazepam 2 mg 11/22/21 09:46 11/22/21 16:35 Lorazepam 2 Mg/Ml Vial IV 2 mg Q1HR PRN Administration CIWA-Ar 8-15 Lorazepam 4 mg 11/22/21 09:46 Lorazepam 2 Mg/Ml Vial IV Q1HR PRN CIWA-Ar 16-25 Lorazepam 4 mg 11/22/21 09:46 Lorazepam 2 Mg/Ml Vial IV Q15MIN PRN CIWA-Ar >25 Losartan Potassium 25 mg 11/22/21 10:00 11/23/21 09:54 Losartan 25 Mg Tab PO Not Given DAILY ROSMERY Morphine Sulfate 2 mg 11/22/21 09:48 11/23/21 09:59 Morphine 2 Mg/1 Ml Inj IV 2 mg Q4H PRN Administration Pain, Moderate (4-6) Nicotine 14 mg 11/22/21 13:30 11/23/21 09:59 Nicotine 14 Mg/24 Hr Patch TD 14 mg QDAY ROSMERY Administration Ondansetron HCl 4 mg 11/21/21 23:00 11/22/21 09:05 Ondansetron 4 Mg/2 Ml Inj IV 4 mg Q8H PRN Administration Nausea And Vomiting Sodium Chloride 10 ml 11/22/21 10:00 11/23/21 09:59 Sodium Chloride 0.9% 10 Ml Flush Syringe IV 10 ml BID ROSMERY Administration Sodium Chloride 10 ml 11/21/21 23:00 Sodium Chloride 0.9% 10 Ml Flush Syringe IV PRN PRN LINE FLUSH
[2021-11-23] MEDS: SODIUM CHLORIDE 0.9% 1000 ML 1,000 ML IV SCH ×2 (13:36→22:08)
[2021-11-23] MEDS ORDERED: POLYETHYLENE GLYCOL 3350 17 GM POWDER PO SCH (18:00)
[2021-11-24] MEDS: LORazepam 2 MG/ML VIAL IV PRN (01:24)
[2021-11-24] MEDS: IPRATROPIUM/ALBUTEROL SULFATE 3 ML AMPUL.NEB IH SCH (03:29)
[2021-11-24] MEDS: MORPHINE 2 MG/1 ML INJ IV PRN (04:16)
[2021-11-24 06:31] VITALS: BP 128/81
[2021-11-24] MEDS ORDERED: IPRATROPIUM/ALBUTEROL SULFATE 3 ML AMPUL.NEB IH SCH (08:00)
--- NOTE | 2021-11-24 09:52 | Discharge Summary ---
Providers - Providers Date of Admission: 11/21/21 23:00 Date of discharge: 11/24/21 Attending physician: HUSSEIN CHOE Hospitalization Reason for admission: pancreatitis Condition: Stable Hospital course: 36 years old male with past medical history of alcohol abuse was brought to the emergency room because of middle, upper abdominal pain, sharp, radiating, 10/10, not worsened or relieved by anything. In the emergency room, initial CT scan of the abdomen and pelvis showed acute pancreatitis and lipase of 703. The patient was admitted with diagnosis of acute pancreatitis, SIRS, hyponatremia, hypertension, asthma, hypokalemia and EtOH dependence. The patient received IV fluid hydration, Pepcid and pain control with pain medications. Patient was counseled on the importance of EtOH cessation. Patient's lipase trended back to normal with follow-up lipase of 277. Diet was advanced and patient tolerated clear liquid diet. However, patient signed out AMA before completion of treatment and supportive care. Dedicated discharge time 35 minutes Disposition: 07 LEFT AGAINST MEDICAL ADVICE Final Discharge Diagnosis (Prints w/discharge instructions): acute pancreatitis, SIRS, hyponatremia, hypertension, asthma, hypokalemia and EtOH dependence. Core Measure Documentation - Palliative Care Palliative Care/ Comfort Measures: Not Applicable - Core Measures Any of the following diagnoses?: none Exam - Constitutional Vitals: Temp Pulse Resp BP Pulse Ox 99.0 F 114 H 18 128/81 100 11/24/21 04:58 11/24/21 04:58 11/24/21 04:58 11/24/21 04:58 11/24/21 04:58 General appearance: Present: no acute distress, well-nourished - EENT Eyes: Present: PERRL ENT: hearing intact, clear oral mucosa - Neck Neck: Present: supple, normal ROM - Respiratory Respiratory effort: normal Respiratory: bilateral: CTA - Cardiovascular Heart Sounds: Present: S1 & S2. Absent: rub, click - Extremities Extremities: pulses symmetrical, No edema Peripheral Pulses: within normal limits - Abdominal General gastrointestinal: Present: soft, non-tender, non-distended, normal bowel sounds Male genitourinary: Present: normal - Integumentary Integumentary: Present: clear, warm, dry - Musculoskeletal Musculoskeletal: gait normal, strength equal bilaterally - Psychiatric Psychiatric: appropriate mood/affect, intact judgment & insight - Neurologic Neurologic: CNII-XII intact, moves all extremities Plan Follow up with: [facility] [Other] - 7 Days Forms: AMA Form
== END 2021-11-24 06:50 | disposition left against medical advice (07) | DRG 439 ==
LOC: ED 14:35 → 4A 23:00 → 3A 11-22 07:30
PROVIDERS: ADMIT Hospitalist; ATTEND Hospitalist
DX: K85.90 Acute pancreatitis without necrosis or infection, unspecified (principal); R65.10 Systemic inflammatory response syndrome (SIRS) of non-infectious origin without acute organ dysfunction; E87.1 Hypo-osmolality and hyponatremia; Z79.899 Other long term (current) drug therapy; J45.909 Unspecified asthma, uncomplicated; Y90.9 Presence of alcohol in blood, level not specified; E87.6 Hypokalemia; F17.200 Nicotine dependence, unspecified, uncomplicated; Z71.6 Tobacco abuse counseling; F10.20 Alcohol dependence, uncomplicated; Z53.29 Procedure and treatment not carried out because of patient's decision for other reasons
CPT/HCPCS: 36415; 74177; 80048; 80053; 80307; 81001; 82140; 83690; 83735; 84100; 84295; 85025; 85027; 94640; 96365; 96366; 96375; 96376; 99285; 99406; G0378; J3490; J1170; J1644; J1885; J2060; J2270; J2405; J3411; J7030; Q9967